=== PATIENT | male | born 2000 | race Caucasian/White ===

== ENCOUNTER 2022-09-27 23:30 | Emergency (ER) | payer OTHER ==
[~2022-09-27] VITALS: Ht 188 cm; Wt 104.3 kg
[2022-09-27 23:35] VITALS: BP 145/90
--- NOTE | 2022-09-27 23:38 | NUR ---
TO LOBBY A/W BED AMBULATORY
--- NOTE | 2022-09-28 01:31 | NUR ---
AMBULATED TO ED RM 8. PLACED ON MONITOR. APPEARS IN NO ACUTE DISTRESS.
--- NOTE | 2022-09-28 01:35 | NUR ---
COUGHING BLOOD, AN HOUR AGO, FRESH , RED, AND LARGE AMOUNT.PATIENT IS LAERT AND ORIENTED X4 AND AMBUALTORY.
[2022-09-28] MEDS ORDERED: MUC600 PO (01:59)
[2022-09-28] MEDS ORDERED: BENZ-300 PO (01:59)
[2022-09-28 03:15] VITALS: BP 140/79
--- NOTE | 2022-09-28 03:51 | NUR ---
Patient discharged with v/s stable. Written and verbal after care instructions given and explained. Patient verbalized understanding. Ambulatory with steady gait. All questions addressed prior to discharge. Advised to follow up with PMD. PT LEFT WITH HIS BELONANAS
== END 2022-09-28 03:51 | disposition home or self-care (01) ==
LOC: MED 23:30
DX: J06.9 Acute upper respiratory infection, unspecified (principal); J40 Bronchitis, not specified as acute or chronic; B97.89 Other viral agents as the cause of diseases classified elsewhere; Z79.899 Other long term (current) drug therapy
CPT/HCPCS: 71046; 99283